=== PATIENT | female | born 1980 | race Two or more races ===

== ENCOUNTER 2019-11-05 03:24 | Emergency (ER) | payer OTHER ==
[~2019-11-05] VITALS: Ht 165.1 cm; Wt 99.8 kg
[2019-11-05] MEDS ORDERED: CEFTRIAXONE SOD 500 MG VIAL IM ONE (03:45)
[2019-11-05] MEDS ORDERED: LIDOCAINE HCL 1% LOCAL INJ 20 ML VIAL ONE (04:01)
[2019-11-05] MEDS ORDERED: CEFTRIAXONE SOD 500 MG VIAL ONE (04:01)
[2019-11-05 04:35] VITALS: BP 137/76
== END 2019-11-05 04:35 | disposition home or self-care (01) ==
LOC: FSED 03:24
DX: R30.0 Dysuria (principal); R10.2 Pelvic and perineal pain; A54.01 Gonococcal cystitis and urethritis, unspecified; A54.24 Gonococcal female pelvic inflammatory disease
CPT/HCPCS: 81003; 96372; 99283; J0696; J2001

== ENCOUNTER 2021-07-20 04:09 | Emergency (ER) | payer OTHER ==
[~2021-07-20] VITALS: Ht 165.1 cm; Wt 99.8 kg
[2021-07-20] MEDS ORDERED: DOXYCYCLINE HY100 MG PO (05:30)
[2021-07-20] MEDS ORDERED: CEFTRIAXONE 500 MG VIAL IM ONE (05:30)
[2021-07-20] MEDS ORDERED: CEFTRIAXONE 1 GM VIAL ONE (05:40)
[2021-07-20] MEDS ORDERED: CEFTRIAXONE 500 MG VIAL ONE (05:43)
== END 2021-07-20 05:49 | disposition home or self-care (01) ==
LOC: FSED 05:20
DX: R30.0 Dysuria (principal); Z72.51 High risk heterosexual behavior; Z87.898 Personal history of other specified conditions; I10 Essential (primary) hypertension
CPT/HCPCS: 81003; 81025; 99282; J0696 ×2